=== PATIENT | female | born 1965 | race Caucasian/White ===

== ENCOUNTER 2017-05-03 11:10 | Inpatient (IN) | payer MEDICARE, MEDICAID ==
[~2017-05-03 11:10] MED LIST: CIPR500T4 PO; CLON.1 PO; CLON.5 PO; VENL75XR PO
[2017-05-03 11:24] VITALS: BP 154/84; PULSE 106; RESP 17; O2SAT 97
[2017-05-03 11:28] VITALS: TEMP 98.2
--- NOTE | 2017-05-03 11:31 | PD ---
HPI Chief Complaint: Psychiatric Symptoms Time Seen by Provider: 11:20 Travel History International Travel<30 days: No Contact w/Intl Traveler<30days: No Traveled to known affect area: No History of Present Illness HPI 51-year-old female brought in under Pulido act after being "found walking completely nude along the roadway. Disoriented speaking about God/devil and sodomy." The patient is awake and alert. Patient is having delusional thought process and hallucinations. History of present illness is limited secondary to patient's altered mental status. She does appear under the influence of drugs. She did answer a few questions. She denies illicit drug use, and alcohol use. She denied allergies but according to her medical record she is allergic to Fluorouracil and latex. She says her primary care provider's name is Renetta. She reports history of hypertension and severe depression. PFSH Past Medical History Hx Anticoagulant Therapy: No Asthma: Yes Anxiety: Yes Depression: Yes Cardiovascular Problems: Yes (A-FIB FROM LOW POTASSIUM) Chemotherapy: No Cerebrovascular Accident: Yes ("MICRO STROKES") Diabetes: Yes Diminished Hearing: No Fibromyalgia: Yes Hypertension: Yes Respiratory: Yes (PNA) Migraines: Yes ?: Unknown Past Surgical History Cholecystectomy: Yes (2008) Hysterectomy: Yes Social History Alcohol Use: No Tobacco Use: No Substance Use: No Allergies-Medications (Allergen,Severity, Reaction): Coded Allergies: latex (Unverified Allergy, Severe, 05/03/17) Uncoded Allergies: FIVE-FLUOROURACIL (Allergy, Unknown, 03/30/16) Reported Meds & Prescriptions Reported Meds & Active Scripts Active Cipro (Ciprofloxacin HCl) 500 Mg Tab 500 Mg PO BID 5 Days Effexor-Xr (Venlafaxine HCl) 75 Mg Caper 75 Mg PO BID 30 Days Klonopin (Clonazepam) 0.5 Mg Tab 0.5 Mg PO Q8HR PRN Reported Catapres 0.1 mg (Clonidine HCl) 0.1 Mg Tab 0.1 Tab PO BID Review of Systems ROS Limitations: Clinical Condition, Intoxication, Altered Mental Status, Uncooperative, Psychotic Physical Exam Narrative GENERAL: Well-nourished, well-developed female patient, in no acute distress; appears and acting entered the influence SKIN: Warm and dry. HEAD: Atraumatic. Normocephalic. EYES: Pupils equal and round. ENT: Mucosa pink and moist. NECK: Supple. Trachea midline. CARDIOVASCULAR: Regular rate and rhythm. No murmur appreciated. RESPIRATORY: No accessory muscle use. Clear to auscultation. Breath sounds equal bilaterally. GASTROINTESTINAL: Abdomen soft, non-tender, nondistended. Hepatic and splenic margins not palpable. Bowel sounds are active 4 quadrants. MUSCULOSKELETAL: No obvious deformities. No clubbing. No cyanosis. No edema. BACK: No CVA tenderness. NEUROLOGICAL: Awake and alert. Oriented 3. No obvious cranial nerve deficits. Motor grossly within normal limits. Normal speech. Moves all extremities. 5/5 strength to all extremities. PSYCHIATRIC: Delusional thought processes. Positive hallucinations. Data Data Last Documented VS Vital Signs Date Time Temp Pulse Resp B/P (MAP) Pulse Ox O2 Delivery O2 Flow Rate FiO2 05/03/17 13:21 72 16 165/79 (107) 95 Room Air 05/03/17 11:28 98.2 Orders Orders Complete Blood Count With Diff (05/03/17 11:31) Comprehensive Metabolic Panel (05/03/17 11:31) Urinalysis - C+S If Indicated (05/03/17 11:31) Psych Screen (05/03/17 11:31) Drug Screen, Random Urine (05/03/17 11:31) Alcohol (Ethanol) (05/03/17 11:31) Salicylates (Aspirin) (05/03/17 11:31) Tylenol (Acetaminophen) (05/03/17 11:31) Ct Brain W/O Iv Contrast(Rout) (05/03/17 ) Ziprasidone Inj (Geodon Inj) (05/03/17 12:45) Lorazepam Inj (Ativan Inj) (05/03/17 12:45) Labs Laboratory Tests Test 05/03/17 12:20 05/03/17 12:25 Urine Color LIGHT-YELLOW Urine Turbidity CLEAR Urine pH 6.5 Urine Specific [place] 1.010 Urine Protein NEG mg/dL Urine Glucose (UA) NEG mg/dL Urine Ketones TRACE mg/dL Urine Occult Blood MOD Urine Nitrite NEG Urine Bilirubin NEG Urine Urobilinogen LESS THAN 2.0 MG/DL Urine Leukocyte Esterase NEG Urine RBC 14 /hpf Urine WBC 1 /hpf Urine Squamous Epithelial Cells 1 /hpf Urine Hyaline Casts 4 /lpf Microscopic Urinalysis Comment CULT NOT INDICATED Urine Opiates Screen NEG Urine Barbiturates Screen NEG Urine Amphetamines Screen NEG Urine Benzodiazepines Screen NEG Urine Cocaine Screen NEG Urine Cannabinoids Screen NEG White Blood Count 11.8 TH/MM3 Red Blood Count 4.50 MIL/MM3 Hemoglobin 13.4 GM/DL Hematocrit 40.3 % Mean Corpuscular Volume 89.5 FL Mean Corpuscular Hemoglobin 29.9 PG Mean Corpuscular Hemoglobin Concent 33.3 % Red Cell Distribution Width 12.6 % Platelet Count 290 TH/MM3 Mean Platelet Volume 8.5 FL Neutrophils (%) (Auto) 88.3 % Lymphocytes (%) (Auto) 8.1 % Monocytes (%) (Auto) 3.0 % Eosinophils (%) (Auto) 0.3 % Basophils (%) (Auto) 0.3 % Neutrophils # (Auto) 10.4 TH/MM3 Lymphocytes # (Auto) 1.0 TH/MM3 Monocytes # (Auto) 0.4 TH/MM3 Eosinophils # (Auto) 0.0 TH/MM3 Basophils # (Auto) 0.0 TH/MM3 CBC Comment DIFF FINAL Differential Comment Blood Urea Nitrogen 22 MG/DL Creatinine 0.72 MG/DL Random Glucose 144 MG/DL Total Protein 7.3 GM/DL Albumin 4.0 GM/DL Calcium Level 9.4 MG/DL Alkaline Phosphatase 64 U/L Aspartate Amino Transf (AST/SGOT) 24 U/L Alanine Aminotransferase (ALT/SGPT) 25 U/L Total Bilirubin 0.6 MG/DL Sodium Level 138 MEQ/L Potassium Level 4.3 MEQ/L Chloride Level 105 MEQ/L Carbon Dioxide Level 23.2 MEQ/L Anion Gap 10 MEQ/L Estimat Glomerular Filtration Rate 85 ML/MIN Salicylates Level LESS THAN 1.7 MG/DL Acetaminophen Level LESS THAN 2.0 MCG/ML Ethyl Alcohol Level LESS THAN 3 MG/DL [facility] Medical Decision Making Medical Screen Exam Complete: Yes Emergency Medical Condition: Yes Medical Record Reviewed: Yes Differential Diagnosis Drug intoxication, psychosis, schizophrenia, bipolar disorder Narrative Course Patient presents under a Pulido act. Physical examination and vital signs are essentially unremarkable. Patient has no medical complaints to report. Psych screen has been ordered. If the laboratory results and CT head are unremarkable, the patient will be medically cleared for psychiatric evaluation and disposition. 1242: Patient aggravated and yelling. Geodon and Ativan ordered. 1343: CBC unremarkable. CMP unremarkable. Drug screen negative. EtOH less than 3. Salicylates and acetaminophen unremarkable. Urinalysis without signs of infection. Head CT concludes: Head CT 05/03/17 0000 Signed Impressions: Service Date/Time: Wednesday, May 03, 2017 12:18 - CONCLUSION: Normal examination. Blair Evans MD Patient medically cleared for psychiatric evaluation. Diagnosis Primary Impression: Medical clearance for psychiatric admission Condition: Stable ErikLibby jarrellchrystal Dodson [facility] May 03, 2017 11:31
--- NOTE | 2017-05-03 12:36 | RADRPT ---
EXAM DATE/TIME: 05/03/2017 12:18 [place] COMPARISON: CT BRAIN W/O CONTRAST, February 15, 2016, 20:09. INDICATIONS : Altered mental status. RADIATION DOSE: 33.98 CTDIvol (mGy) MEDICAL HISTORY : Cerebrovascular disease. Cardiovascular disease Hypertension.Diabetes SURGICAL HISTORY : Cholecystectomy. Hysterectomy. ENCOUNTER: Initial ACUITY: 1 day PAIN SCALE: 0/10 LOCATION: cranial TECHNIQUE: Multiple contiguous axial images were obtained of the head. Using automated exposure control and adj ustment of the mA and/or kV according to patient size, radiation dose was kept as low as reasonably a chievable to obtain optimal diagnostic quality images. DICOM format image data is available electro nically for review and comparison. FINDINGS: CEREBRUM: The ventricles are normal for age. No evidence of midline shift, mass lesion, hemorrhage or acute in farction. No extra-axial fluid collections are seen. POSTERIOR FOSSA: The cerebellum and brainstem are intact. The 4th ventricle is midline. The cerebellopontine angle i s unremarkable. EXTRACRANIAL: The visualized portion of the orbits is intact. SKULL: The calvaria is intact. No evidence of skull fracture. CONCLUSION: Normal examination. Blair Evans MD on May 03, 2017 at 12:34 Board Certified Radiologist. This report was verified electronically.
[2017-05-03 12:44] LABS: AUTOMATED NEUTROPHIL # 10.4 TH/MM3 (1.8-7.7); BASOPHIL % 0.3 % (0.0-2.0); EOSINOPHIL % 0.3 % (0.0-4.0); HEMATOCRIT 40.3 % (35.0-46.0); HEMO FLAGS DIFF FINAL; LYMPH % 8.1 % (9.0-44.0); MEAN CELL VOLUME 89.5 FL (80.0-100.0); MEAN CORPUSCULAR HEMOGLOBIN 29.9 PG (27.0-34.0); MEAN CORPUSCULAR HGB CONC 33.3 % (32.0-36.0); NEUT % 88.3 % (16.0-70.0); PLATELET COUNT 290 TH/MM3 (150-450); RED CELL DISTRIBUTION WIDTH 12.6 % (11.6-17.2); WHITE BLOOD COUNT 11.8 TH/MM3 (4.0-11.0)
[2017-05-03] MEDS ORDERED: ZIPRASIDONE MESYLATE 20 MG VIAL IM ONE ×2 (12:45→16:30)
[2017-05-03] MEDS ORDERED: LORazepam 2 MG/ML VIAL IM ONE ×2 (12:45→16:30)
[2017-05-03 12:47] LABS: BLOOD, URINE MOD (NEG); GLUCOSE,URINE NEG (NEG); HYALINE CAST, URINE 4 /lpf (RARE); KETONE, URINE TRACE mg/dL (NEG); NITRITE,URINE NEG (NEG); PH, URINE 6.5 (5.0-8.5); SQUAMOUS EPITHELIAL CELL URINE 1 /hpf (0-5); URINE COLOR LIGHT-YELLOW (YELLW/STRAW)
[2017-05-03 12:48] LABS: COMMENT (UR) CULT NOT INDICATED; CULTURE IF INDICATED CULT NOT INDICATED
[2017-05-03 13:02] LABS: ANION GAP 10 MEQ/L (5-15); AST (GOT) 24 U/L (15-37); BICARBONATE 23.2 MEQ/L (21.0-32.0); BLOOD UREA NITROGEN 22 MG/DL (7-18); CHLORIDE 105 MEQ/L (98-107); GLOMERULAR FILTRATION RATE 85 ML/MIN (>89); POTASSIUM 4.3 MEQ/L (3.5-5.1); SODIUM (NA) 138 MEQ/L (136-145)
[2017-05-03 13:03] LABS: ALCOHOL LESS THAN 3 MG/DL (0-5); ALT (GPT) 25 U/L (10-53)
[2017-05-03 13:06] LABS: ALKALINE PHOSPHATASE 64 U/L (45-117); TOTAL BILIRUBIN ADULT 0.6 MG/DL (0.2-1.0)
[2017-05-03 13:11] LABS: ACETAMINOPHEN LESS THAN 2.0 MCG/ML (10.0-30.0)
[2017-05-03 13:21] VITALS: BP 165/79; PULSE 72; RESP 16; O2SAT 95
[2017-05-03 16:07] VITALS: BP 121/70; PULSE 98; RESP 16; O2SAT 99
[2017-05-03] MEDS ORDERED: OLANZapine IM 10 MG VIAL IM STA (16:42)
[2017-05-03] MEDS ORDERED: OLANZapine IM 10 MG VIAL IM PRN (17:00)
[2017-05-03] MEDS ORDERED: BACL10TA PO (17:05)
[2017-05-03] MEDS ORDERED: [UNRECOGNIZED DRUG - CODE] PO (17:05)
[2017-05-03] MEDS ORDERED: CYCL10TA PO (17:07)
[2017-05-03] MEDS ORDERED: IBUP1TAB7 PO (17:07)
[2017-05-03] MEDS ORDERED: MAGNESIUM HYDROXIDE SUSP 30 ML CUP PO PRN (17:15)
[2017-05-03] MEDS ORDERED: ALUMINUM/MAGNESIUM/SIMETH 30 ML CUP PO PRN (17:15)
[2017-05-03] MEDS ORDERED: LORazepam 2 MG/ML VIAL IM PRN (17:15)
[2017-05-03] MEDS ORDERED: BENZTROPINE MESYLATE 2 MG/2 ML VIAL IM PRN (17:15)
[2017-05-03 17:25] VITALS: BP 116/68; PULSE 96; RESP 18; TEMP 98.5; O2SAT 97
--- NOTE | 2017-05-03 18:03 | MH ---
cc: JUANITASERA DATE OF ADMISSION 05/03/2017 ADMISSION DIAGNOSES 1. Bipolar disorder, presently manic, severe with psychotic features. LEGAL STATUS: The patient is presently not capacitated to consent for admission or for medication/treatment. I have initiated a petition for involuntary psychiatric hospitalization and have requested a healthcare surrogate and guardian advocate. HISTORY OF PRESENT ILLNESS Ms. Mg is a 51-year-old female with a chart history of bipolar illness who presents under a Pulido Act from [place] [employer] alleging that the patient was found walking completely nude along the roadway. She was reported allegedly disoriented and speaking about God and the devil as well as sodomy. Reviewing the electronic medical record, I note that the patient was seen in consultation by Dr. Munguia in February of 2016 with a diagnosis of bipolar disorder. The patient has been agitated in the emergency department and has required Geodon ETO x2. The patient seen and examined with nurse. Chart reviewed. Case discussed with nursing staff. On my examination today, the patient presents as irritable with pressured speech. She is essentially impossible to interrupt and continues to speak regardless of my efforts to question her. She is rambling on mu-ism and linguistic scenes. She tells me "Bryan. D-A-N-I-[id number]-L with three trumpets at the ready. Blow the horn tonight. No one else. Lineal, lineal, lineal phonetically correct spelling. Mongolian word, word, word". She also purports to speak in [place]guillan and Yiddish and purports to demonstrate, although I am not fluent in these languages. She rambles about demons. She is quite disinhibited and sexually preoccupied. She is fairly intrusive and impulsive. She is unable to deny suicidal or homicidal ideation when asked. Psychiatric interview is extremely limited by her decompensated psychiatric state. She does not verbalize any physical complaints. Given the patient's extreme degree of psychotic decompensation in the setting of what I suspect is a bipolar illness, I have obtained collateral from her daughter, Yesy Aponte at [phone]. Ms. Aponte reports that the patient has a history of "sleep disorder" and had previously taken Klonopin for sleep, although she has not taken it for two or three weeks or so. The patient's daughter notes that the patient has not slept for least five days. She notes that the patient has been stressed because of financial issues related to the patient's son. Ms. Aponte notes that the patient has a history of manic decompensations in the setting of sleep disturbance and psychosocial stressors. She reports a poor response in the past to lithium and Seroquel. The patient has also apparently been on antidepressants in the past. She notes that the patient gets her medications filled at the [facility] on [address] as well as the [facility] on [address]. I have asked the nursing staff to obtain an up to date medication list from these pharmacies. PAST PSYCHIATRIC HISTORY The patient is unable to provide. She says "I absolutely pozzzzzzz, laser beaming in my eye". FAMILY HISTORY The patient unable to provide because of psychiatric decompensation. She tells me simply "hold for the lock". CHEMICAL DEPENDENCY HISTORY: The patient tells me "I use the drugs I need and alcohol I like". I reviewed the patient's controlled substances database report the [id number] and this revealed no controlled substances prescribed to the patient in the last three years. SOCIAL HISTORY The patient is unable to provide any meaningful detail because of her degree of psychiatric decompensation. PAST MEDICAL HISTORY See electronic medical record. The patient is unable to provide. REVIEW OF SYSTEMS Severely limited because of the patient's psychiatric condition and psychotic state. Except as noted above in history of present illness, this is negative. PHYSICAL EXAMINATION VITAL SIGNS: Temperature 98.2, pulse 98, respirations 16, blood pressure 121/70, pulse oximetry 99% on room air. A physical examination was completed by the ED provider. On my examination today, the patient appears to be in no acute physical distress. No motor abnormalities noted, although the patient is a little psychomotor agitated. LABORATORY REVIEWED CBC reveals mild leukocytosis with white blood cell count of 11.8. CMP reveals decreased GFR at 85 and hyperglycemia and a non-fasting sample at 144. Urine toxicology negative and alcohol level undetectable. Urinalysis reveals 14 red blood cells, one white blood cell and moderate occult blood. Head CT was read as normal examination. MENTAL STATUS EXAM The patient is in hospital gown. She is fairly disheveled. She is awake and alert and oriented to person at least. I am unable to pursue further mental status testing because of her current psychiatric state. Motor exam as above. Speech is extremely pressured and essentially impossible to interrupt. Language and fund of knowledge seem average. Focus and concentration are quite scattered. Memory is difficult to assess given her psychiatric condition. Mood is irritable and affect is consistent with stated mood. Thought process with loosening of associations. Grandiose and mu-ism delusions are present. The patient appears frankly internally stimulated and seems to be responding to internal stimuli. She is unable to say whether she is experiencing suicidal or homicidal ideation but would be unreliable to contract for safety in her present state at any rate. Insight and judgment are quite poor. ASSESSMENT/PLAN This is a 51-year-old female with psychiatric history as noted above who presents under a Pulido Act. On my examination today, the patient presents in a severely decompensated manic state with psychotic features. She doubtless requires psychiatric admission for safety, observation and stabilization. Admit inpatient. Involuntary status. I have completed first opinion. Consult for second opinion. Request health care surrogate and guardian advocate. For mood stabilization, I will initiate Depakote ER 1.5 grams daily with plans to check a Depakote and ammonia level the middle of next week. LFTs and platelets okay. For psychosis and mood stabilization as well as to assist with sleep, I will start the patient on Zyprexa 10 mg at bedtime p.o. or IM if needed. I will provide the patient with Ativan as needed for anxiety, Cogentin as needed for EPS, Ambien as needed for sleep. I will check an extended urine tox screen and beta hCG. I will check an updated CBC, BMP as well as a hemoglobin A1c and lipid panel in the morning. Once the nursing staff has obtained and up-to-date medication list, this will be reconciled to place the patient back on her appropriate general medical medications. I have instituted sexual precautions given her sexual preoccupation. Vitals every shift. Counselor to see. Disposition planning. Estimated length of stay: 7-9 days. Sera Paris DC/ /5:13 PM /5:48 PM LASHAY
[2017-05-03] MEDS: LORazepam 1 MG TAB PO PRN (20:22)
[2017-05-03] MEDS ORDERED: OLANZapine ODT 10 MG TAB PO SCH (21:00)
[2017-05-03 21:10] VITALS: BP 143/83; PULSE 94; RESP 20; TEMP 97.8; O2SAT 100
[2017-05-04] MEDS: LORazepam 1 MG TAB PO PRN (05:48)
[2017-05-04] MEDS ORDERED: HALOPERIDOL LACTATE 5 MG/ML AMP IM STA (07:51)
[2017-05-04] MEDS ORDERED: diphenhydrAMINE HCL 50 MG/ML VIAL IM ONE (08:00)
[2017-05-04] MEDS ORDERED: LORazepam 2 MG/ML VIAL IM ONE (08:00)
[2017-05-04] MEDS: DIVALPROEX SODIUM E.R. 500 MG TAB PO SCH (08:01)
[2017-05-04] MEDS: NICOTINE 21 MG/24 HR PATCH T-DERMAL SCH (08:07)
[2017-05-04 08:49] LABS: AUTOMATED NEUTROPHIL # 4.5 TH/MM3 (1.8-7.7); BASOPHIL # 0.1 TH/MM3 (0-0.2); BASOPHIL % 0.7 % (0.0-2.0); EOSINOPHIL # 0.3 TH/MM3 (0-0.4); EOSINOPHIL % 2.8 % (0.0-4.0); HEMATOCRIT 41.2 % (35.0-46.0); HEMO FLAGS DIFF FINAL; LYMPH % 42.5 % (9.0-44.0); LYMPHOCYTE # 4.3 TH/MM3 (1.0-4.8); MEAN CELL VOLUME 89.8 FL (80.0-100.0); MEAN CORPUSCULAR HGB CONC 33.4 % (32.0-36.0); PLATELET COUNT 317 TH/MM3 (150-450); RED BLOOD COUNT 4.59 MIL/MM3 (4.00-5.30); RED CELL DISTRIBUTION WIDTH 12.6 % (11.6-17.2); WHITE BLOOD COUNT 10.2 TH/MM3 (4.0-11.0)
[2017-05-04 08:51] LABS: ANION GAP 9 MEQ/L (5-15); BICARBONATE 24.9 MEQ/L (21.0-32.0); BLOOD UREA NITROGEN 15 MG/DL (7-18); CHLORIDE 103 MEQ/L (98-107); GLOMERULAR FILTRATION RATE 91 ML/MIN (>89); LDL CHOLESTEROL 94 MG/DL (0-99); POTASSIUM 3.3 MEQ/L (3.5-5.1); SODIUM (NA) 137 MEQ/L (136-145)
[2017-05-04 12:09] LABS: HEMOGLOBIN A1a 0.9 %; HEMOGLOBIN A1b 1.7 %; HEMOGLOBIN Ao 85.5 %; HEMOGLOBIN P3 3.6 %
--- NOTE | 2017-05-04 13:42 | HHI.PYPN ---
Subjective Remarks Is a request for second opinion. Her admission note was reviewed and I agree with the contents. Patient remains acutely manic throughout the day. She required an ETO of Thorazine. She was observed in the hallway. Agitated, yelling, accusatory, pressured speech, irritable, flight of ideas. Insight is quite poor. She is compliant with her medications and tolerating them well Mental Status Examination Appearance: Disheveled Consciousness: Highly Distractible Orientation: Person, Place, Date/Time Speech: Pressured, Rapid Language: Adequate Fund of Knowledge: Adequate Attention and Concentration: Easily Distracted Memory: Unremarkable (not formally tested) Mood: Oppositional, Irritable, Manic Affect: Irritable, Labile, Anxious Thought Process & Associations: Other (flight of ideas) Thought Content: Bizarre thinking, Racing thoughts Hallucination Type: None Delusion Type: None Suicidal Ideation: No Suicidal Plan: No Suicidal Intention: No Homicidal Ideation: No Homicidal Plan: No Homicidal Intention: No Insight: Poor Judgment: Poor Results Labs Test 05/04/17 07:41 White Blood Count 10.2 TH/MM3 Red Blood Count 4.59 MIL/MM3 Hemoglobin 13.7 GM/DL Hematocrit 41.2 % Mean Corpuscular Volume 89.8 FL Mean Corpuscular Hemoglobin 30.0 PG Mean Corpuscular Hemoglobin Concent 33.4 % Red Cell Distribution Width 12.6 % Platelet Count 317 TH/MM3 Mean Platelet Volume 8.3 FL Neutrophils (%) (Auto) 44.0 % Lymphocytes (%) (Auto) 42.5 % Monocytes (%) (Auto) 10.0 % Eosinophils (%) (Auto) 2.8 % Basophils (%) (Auto) 0.7 % Neutrophils # (Auto) 4.5 TH/MM3 Lymphocytes # (Auto) 4.3 TH/MM3 Monocytes # (Auto) 1.0 TH/MM3 Eosinophils # (Auto) 0.3 TH/MM3 Basophils # (Auto) 0.1 TH/MM3 CBC Comment DIFF FINAL Differential Comment Blood Urea Nitrogen 15 MG/DL Creatinine 0.68 MG/DL Random Glucose 115 MG/DL Calcium Level 9.4 MG/DL Sodium Level 137 MEQ/L Potassium Level 3.3 MEQ/L Chloride Level 103 MEQ/L Carbon Dioxide Level 24.9 MEQ/L Anion Gap 9 MEQ/L Estimat Glomerular Filtration Rate 91 ML/MIN Hemoglobin A1c 5.6 % Triglycerides Level 160 MG/DL Cholesterol Level 182 MG/DL LDL Cholesterol 94 MG/DL HDL Cholesterol 56.0 MG/DL Cholesterol/HDL Ratio 3.25 RATIO Vitals/IOs Vital Signs Date Time Temp Pulse Resp B/P (MAP) Pulse Ox O2 Delivery O2 Flow Rate FiO2 05/03/17 21:10 97.8 94 20 143/83 (103) 100 05/03/17 17:25 Room Air Assessment & Plan Problem List: (1) Bipolar disorder, current episode manic severe with psychotic features ICD Codes: F31.2 - Bipolar disorder, current episode manic severe with psychotic features Assessment & Plan I agree with the first opinion to continue petition. Criteria include acute merry. Today potassium was low and we will give her 20 mEq and repeat and repeat a level this afternoon. We'll also increase Zyprexa to 20 mg Justification for Cont. Inpt. Patient will decompensate in a less restrictive setting Evan Frausto DO May 04, 2017 13:42
[2017-05-04] MEDS ORDERED: POTASSIUM CHLORIDE 20 MEQ CONTROLLED RELEASE TAB PO ONE (14:00)
--- NOTE | 2017-05-04 14:49 | EKG ---
Date Performed: 05/03/2017 Time Performed: 21:46:22 PTAGE: 51 years EKG: Sinus rhythm NORMAL ECG PREVIOUS TRACING : 02/08/2016 03.43 Compared to prior tracing no significant change DOCTOR: Oren Torre Interpretating Date/Time 05/04/2017 14:48:22
[2017-05-04] MEDS ORDERED: POTASSIUM CHLORIDE 10 MEQ CONTROLLED RELEASE TAB PO ONE (15:00)
--- NOTE | 2017-05-04 15:10 | PD.CONS ---
HPI Service [facility] Hospitalists Consult Requested By Primary Care Physician Unknown Diagnoses: History of Present Illness 51-year-old white female admitted after being placed under Pulido act for walking nude in public. Per psychiatry she apparently is undergoing a manic episode. Hospitalist was consulted apparently for lice. Patient has undergone substantial psychotropic medication treatment including Geodon, Haldol, Ativan, Benadryl, Thorazine, depakote, and zyprexa - all to help stabilize her mood. Upon entering the patient's room, she is pleasant but becomes very talkative and is almost unable to answer any and all questions since she is exclusively only processing her own words. Review of Systems Unable to obtain due to pt's tangential speech Past Family Social History Allergies: Coded Allergies: latex (Unverified Allergy, Severe, 05/03/17) Uncoded Allergies: FIVE-FLUOROURACIL (Allergy, Unknown, 03/30/16) Past Medical History A. 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 Has a few bruises on her distal extremities. No lice noted EYES: No scleral icterus. No injection or drainage. ENT: No nasal bleeding or discharge. Mucous membranes pink and moist. CARDIOVASCULAR: Regular rate and rhythm. no murmurs RESPIRATORY: No accessory muscle use. Clear to auscultation. Breath sounds equal bilaterally. GASTROINTESTINAL: Abdomen soft, non-tender, nondistended. Extremities: No clubbing, cyanosis, or edema. No obvious deformities. MUSCULOSKELETAL: Extremities without clubbing, cyanosis, or edema. No obvious deformities. grossly intact ROM with 5/5 strength in upper extremities, demonstrates only 3 out of 5 lower ext strength BL as the patient states she is holding back due to back pain, has adequate muscle bulk and tone in all 4 extremities NEUROLOGICAL: Awake and alert. No obvious cranial nerve deficits. No facial droop nor slurred speech noted. PSYCHIATRIC: Insight is poor, pressured speech Laboratory Laboratory Tests Test 05/04/17 07:41 White Blood Count 10.2 Red Blood Count 4.59 Hemoglobin 13.7 Hematocrit 41.2 Mean Corpuscular Volume 89.8 Mean Corpuscular Hemoglobin 30.0 Mean Corpuscular Hemoglobin Concent 33.4 Red Cell Distribution Width 12.6 Platelet Count 317 Mean Platelet Volume 8.3 Neutrophils (%) (Auto) 44.0 Lymphocytes (%) (Auto) 42.5 Monocytes (%) (Auto) 10.0 Eosinophils (%) (Auto) 2.8 Basophils (%) (Auto) 0.7 Neutrophils # (Auto) 4.5 Lymphocytes # (Auto) 4.3 Monocytes # (Auto) 1.0 Eosinophils # (Auto) 0.3 Basophils # (Auto) 0.1 CBC Comment DIFF FINAL Differential Comment Blood Urea Nitrogen 15 Creatinine 0.68 Random Glucose 115 Calcium Level 9.4 Sodium Level 137 Potassium Level 3.3 Chloride Level 103 Carbon Dioxide Level 24.9 Anion Gap 9 Estimat Glomerular Filtration Rate 91 Hemoglobin A1c 5.6 Triglycerides Level 160 Cholesterol Level 182 LDL Cholesterol 94 HDL Cholesterol 56.0 Cholesterol/HDL Ratio 3.25 Result Diagram: 05/04/17 0741 05/04/17 0741 Imaging Last Impressions Head CT 05/03/17 0000 Signed Impressions: Service Date/Time: Wednesday, May 03, 2017 12:18 - CONCLUSION: Normal examination. Blair Evans MD Assessment and Plan Assessment and Plan Lice - No lice noted on exam by me nor nursing. Hypokalemia - checking magnesium level, anticipate improvement, this is likely a lab variation but will follow-up with repeat potassium level, already orally replaced Back pain - appears chronic per medical records, UC per nursing that was completed on 05/03 is negative. Ana - being managed by psychiatry History of A. fib - charted history of A. fib at least, my independent review of the current EKG shows sinus rhythm, no further workup at this time. Clinically rate is normal at this time. Repeat K level appears wnl. would recommend repeating in a 3-4 days. No lice noted at this time. Pt otherwise appears medically stable. Will sign off, contact hospitalist if needed. Willie Robertson MD May 04, 2017 15:10
[2017-05-04 18:36] VITALS: BP 111/56; PULSE 92; RESP 17; TEMP 98.1; O2SAT 96
[2017-05-04] MEDS: OLANZapine ODT 10 MG TAB PO SCH (21:11)
[2017-05-04] MEDS: ACETAMINOPHEN 325 MG TAB PO PRN (21:13)
[2017-05-04] MEDS: diphenhydrAMINE HCL 50 MG CAP PO PRN (22:40)
[2017-05-04] MEDS: ZOLPIDEM TARTRATE 5 MG TAB PO PRN (22:40)
--- NOTE | 2017-05-04 23:33 | EKG ---
Date Performed: 05/04/2017 Time Performed: 16:07:41 PTAGE: 51 years EKG: Sinus rhythm ABNORMAL ECG PREVIOUS TRACING : 05/03/2017 21.46 Compared to prior tracing no significant change DOCTOR: Oren Torre Interpretating Date/Time 05/04/2017 23:32:11
[2017-05-05] MEDS: LORazepam 1 MG TAB PO PRN ×2 (02:24→21:16)
[2017-05-05] MEDS: cloNIDine HCL 0.1 MG TAB PO PRN (02:25)
[2017-05-05] MEDS ORDERED: LEXA10TA PO (03:26)
[2017-05-05 05:48] VITALS: BP 182/77; PULSE 111; RESP 20; TEMP 98.5; O2SAT 97
[2017-05-05] MEDS: DIVALPROEX SODIUM E.R. 500 MG TAB PO SCH (08:18)
[2017-05-05] MEDS: ACETAMINOPHEN 325 MG TAB PO PRN ×2 (08:18→13:41)
[2017-05-05] MEDS: NICOTINE 21 MG/24 HR PATCH T-DERMAL SCH (08:19)
[2017-05-05] MEDS: REMOVE OLD PATCH T-DERMAL SCH (09:00)
--- NOTE | 2017-05-05 14:28 | HHI.PYPN ---
Subjective Remarks Patient was seen and case discussed with nursing. Patient remains acutely manic. Shuffling down the hernandez earlier in this morning had an episode of yelling and screaming that was alleviated with Ativan. Insight remains poor. Remains argumentative. Tolerating her medications well. Zyprexa was increased yesterday Mental Status Examination Appearance: Disheveled Consciousness: Highly Distractible Orientation: Person, Place, Date/Time Speech: Pressured, Rapid Language: Adequate Fund of Knowledge: Adequate Attention and Concentration: Easily Distracted Memory: Unremarkable (not formally tested) Mood: Oppositional, Irritable, Manic Affect: Irritable, Labile, Anxious Thought Process & Associations: Other (flight of ideas) Thought Content: Bizarre thinking, Racing thoughts Hallucination Type: None Delusion Type: None Suicidal Ideation: No Suicidal Plan: No Suicidal Intention: No Homicidal Ideation: No Homicidal Plan: No Homicidal Intention: No Insight: Poor Judgment: Poor Results Labs Test 05/04/17 18:40 Potassium Level 3.9 MEQ/L Vitals/IOs Vital Signs Date Time Temp Pulse Resp B/P (MAP) Pulse Ox O2 Delivery O2 Flow Rate FiO2 05/05/17 05:48 98.5 111 20 182/77 (112) 97 05/03/17 17:25 Room Air Assessment & Plan Problem List: (1) Bipolar disorder, current episode manic severe with psychotic features ICD Codes: F31.2 - Bipolar disorder, current episode manic severe with psychotic features Assessment & Plan Continue current treatment plan Justification for Cont. Inpt. Patient would decompensate in a less restrictive setting Evan Frausto DO May 05, 2017 14:28
[2017-05-05] MEDS: OLANZapine ODT 10 MG TAB PO SCH (21:16)
[2017-05-05] MEDS: BENZTROPINE MESYLATE 1 MG TAB PO PRN (22:12)
[2017-05-05] MEDS: ZOLPIDEM TARTRATE 5 MG TAB PO PRN (22:12)
[2017-05-06 05:52] VITALS: BP 122/75; PULSE 78; RESP 17; TEMP 97.5; O2SAT 98
[2017-05-06] MEDS: DIVALPROEX SODIUM E.R. 500 MG TAB PO SCH (08:19)
[2017-05-06] MEDS: NICOTINE 21 MG/24 HR PATCH T-DERMAL SCH (08:21)
[2017-05-06] MEDS: REMOVE OLD PATCH T-DERMAL SCH (08:21)
--- NOTE | 2017-05-06 09:58 | HHI.PYPN ---
Subjective Chief Complaint: merry with psychotic features Remarks Patient seen and examined with nurse. Chart reviewed. Case discussed with nursing staff who reports patient was screaming and yelling on the unit yesterday. She required extensive ETOs over the weekend but none overnight last night. On my exam, patient's voice is hoarse from screaming. She is irritable but describes mood as "pretty good, considering." She is faultfinding and belittling staff. She is somewhat fidgety. Speech is considerably less pressured than on my initial visit with the patient, and her thoughts are a little more linear. She does continue to exhibit some bizarre ideation at times with synagogue overtones. She tells me, "I'm in the middle of passing over." Denies SI/HI/AVH. Denies side effects from medications. No physical complaints. Insight into mental illness is poor. She insists that she has unipolar depression with "manias" when she cannot sleep and refuses to consider possibility of the bipolar diagnosis. Review of Systems ROS Limitations: Poor Historian Except as stated in HPI: all other systems reviewed are Neg Mental Status Examination Appearance: Disheveled Consciousness: Alert, Highly Distractible Orientation: Person, Place, Date/Time Motor Activity: Other (no hand tremor, no cogwheeling, no dystonias, no dyskinesias. She is somewhat fidgety.) Speech: Other (considerably less pressured today) Language: Adequate Fund of Knowledge: Adequate Attention and Concentration: Easily Distracted Memory: Unremarkable (not formally tested) Mood: Oppositional, Irritable, Manic Affect: Irritable Thought Process & Associations: Other (flight of ideas, somewhat less today) Thought Content: Bizarre thinking Hallucination Type: None Delusion Type: None Suicidal Ideation: No Suicidal Plan: No Suicidal Intention: No Homicidal Ideation: No Homicidal Plan: No Homicidal Intention: No Insight: Poor Judgment: Poor Results Labs Labs reviewed. No new labs. ETox pending. Most recent EKG sinus rhythm with QTcH not prolonged. Vitals/IOs Vital Signs Date Time Temp Pulse Resp B/P (MAP) Pulse Ox O2 Delivery O2 Flow Rate FiO2 05/06/17 05:52 97.5 78 17 122/75 (91) 98 05/03/17 17:25 Room Air Assessment & Plan Problem List: (1) Bipolar disorder, current episode manic severe with psychotic features ICD Codes: F31.2 - Bipolar disorder, current episode manic severe with psychotic features Assessment & Plan Add midday dose of Zyprexa for additional mood stabilization: Zyprexa 5mg qNoon and continue 20mg qHS. Continue Depakote as ordered with plans to check a level middle of the week and adjust dose based on level. Hospitalist input noted and appreciated. I will check a potassium level when I checked the Depakote level as recommended by the hospitalist. Continue to monitor on high acuity unit. Continue other meds and care as ordered. Justification for Cont. Inpt. Resolving impairments in reality construction. Impairment in self-care. Med changes. High risk for decompensation in less restrictive environment. Discharge Planning Pending psychiatric stabilization. I anticipate patient will require an additional 5-7 inpatient days for adequate stabilization for safety discharge. Request HC Surrog/Guard Advoc?: Yes Linwood Paris MD May 06, 2017 09:58
[2017-05-06] MEDS: OLANZapine ODT 5 MG TAB PO SCH (11:15)
[2017-05-06] MEDS ORDERED: MENTHOL LOZENGE BUCCAL PRN (12:00)
[2017-05-06 18:20] VITALS: BP_SYST 127; BP_SYST 144; BP_DIAS 58; BP_DIAS 76; PULSE 117; PULSE 72; RESP 16; RESP 17; TEMP 98; TEMP 98.8; O2SAT 98
[2017-05-06] MEDS: OLANZapine ODT 10 MG TAB PO SCH (20:19)
[2017-05-06] MEDS: ZOLPIDEM TARTRATE 5 MG TAB PO PRN (21:34)
[2017-05-07 05:33] VITALS: BP 117/85; PULSE 80; RESP 16; TEMP 97.3; O2SAT 96
[2017-05-07] MEDS: DIVALPROEX SODIUM E.R. 500 MG TAB PO SCH (08:50)
[2017-05-07] MEDS: LORazepam 1 MG TAB PO PRN ×2 (08:50→17:25)
[2017-05-07] MEDS: NICOTINE 21 MG/24 HR PATCH T-DERMAL SCH (08:51)
[2017-05-07] MEDS: REMOVE OLD PATCH T-DERMAL SCH (08:51)
--- NOTE | 2017-05-07 10:38 | HHI.PYPN ---
Subjective Chief Complaint: merry with psychotic features Remarks Patient seen and examined with nurse. Chart reviewed. Case discussed in treatment team. On my examination today, patient is considerably calmer and more coherent, at least initially. She describes her mood as "pretty good" and says that she is sleeping better. Affect does remain labile, though, and following our interview I note the patient wandering around the unit weeping without identifiable cause. During the interview, patient reported feeling subjectively less anxious. She denies SI/HI/AVH. She denies side effects from medications and feels like current regimen is helping. No new physical complaints. I did place a call to patient's daughter to get her impressions of patient's progress on the unit. I left a generic voicemail requesting a call back. Review of Systems ROS Limitations: Poor Historian Except as stated in HPI: all other systems reviewed are Neg Mental Status Examination Appearance: Disheveled (remains a little disheveled) Consciousness: Alert Orientation: Person, Place, Date/Time Motor Activity: Other (no motor abnormalities noted) Speech: Unremarkable Language: Adequate Fund of Knowledge: Adequate Attention and Concentration: Easily Distracted (lessening. More focused today. ) Memory: Unremarkable (not formally tested) Mood: Other (calmer) Affect: Labile Thought Process & Associations: Other (considerably more linear and goal- directed today) Thought Content: Appropriate Hallucination Type: None Delusion Type: None Suicidal Ideation: No Suicidal Plan: No Suicidal Intention: No Homicidal Ideation: No Homicidal Plan: No Homicidal Intention: No Insight: Poor Judgment: Poor Results Labs Labs reviewed. No new labs. Extended urine toxicology screen pending. Vitals/IOs Vital Signs Date Time Temp Pulse Resp B/P (MAP) Pulse Ox O2 Delivery O2 Flow Rate FiO2 05/07/17 05:33 97.3 80 16 117/85 (96) 96 05/03/17 17:25 Room Air Intake and Output 05/07/17 05/07/17 05/08/17 08:00 16:00 00:00 Intake Total 240 ml Balance 240 ml Assessment & Plan Problem List: (1) Bipolar disorder, current episode manic severe with psychotic features ICD Codes: F31.2 - Bipolar disorder, current episode manic severe with psychotic features Assessment & Plan Patient is improving with respect to her merry. Continue Depakote and Zyprexa as ordered. Depakote and ammonia level ordered for tomorrow morning. We may consider adjusting the dose of Depakote based on the level. Continue to monitor on the inpatient unit. Continue other medications and care as ordered. Justification for Cont. Inpt. Risk for decompensation in less restrictive environment. Discharge Planning Pending stabilization. Hopeful for discharge by the end of the week. Request HC Surrog/Guard Advoc?: Yes Linwood Paris MD May 07, 2017 10:38
--- NOTE | 2017-05-07 11:13 | PD.TTN ---
Patient Problems 1. Discharge planning 2. Medication compliance 3. Knowledge deficit 4. Lack of coping skills Progress Toward Goals Provider Present: Dr. Rosalind Paris Provider Input: Pt currently meets criteria to remain on the unit and remains manic. Medication regiment has been adjusted including titration of Zyprexa and Depakote. Nurse(s) Present: Jeannette Alberts, RN Nurse(s) Input: Pt has been disruptive on the unit including screaming and has been having behavioral issues. Pt appears manic and intrusive with poor boundaries at this time. Psychiatric Counselors Present: ROSEMARY Raya Psych Therapist Input: Pt appears somewhat manic, hyperverbal, disorganized, discharge focused and oriented. Pt feels that she is ready to go home and is quite tearful that she cannot leave at this time. She struggles to remain on topic and requires redirection back to discussion. She presents with limited insight into condition and need for care. Pt has been medication compliant. Group Spec/RT/OT/ABRAHAM Present: Jorge Cuevas OT Group Spec/RT/OT/ABRAHAM Input: Pt has attended one group during her admission and is a fairly new admission. Discharge Plan SMA Pt will return to her home and will be linked with necessary outpatient psychiatric follow up appointment. Documentation Scribe: ROSEMARY Raya Jonathan LMHC May 07, 2017 11:13
[2017-05-07] MEDS: OLANZapine ODT 5 MG TAB PO SCH (11:49)
[2017-05-07] MEDS ORDERED: OLANZapine ODT 5 MG TAB PO ONE (13:45)
[2017-05-07] MEDS: BENZTROPINE MESYLATE 1 MG TAB PO PRN (14:42)
[2017-05-07 18:04] VITALS: BP 126/68; PULSE 92; RESP 18; TEMP 98.7; O2SAT 95
[2017-05-07] MEDS: OLANZapine ODT 10 MG TAB PO SCH (20:21)
[2017-05-07] MEDS: diphenhydrAMINE HCL 50 MG CAP PO PRN (20:21)
[2017-05-07] MEDS: ACETAMINOPHEN 325 MG TAB PO PRN (20:46)
[2017-05-07] MEDS: ZOLPIDEM TARTRATE 5 MG TAB PO PRN (21:00)
[2017-05-08 05:43] VITALS: BP 144/70; PULSE 79; RESP 18; TEMP 97.5; O2SAT 98
[2017-05-08] MEDS: DIVALPROEX SODIUM E.R. 500 MG TAB PO SCH (07:58)
[2017-05-08] MEDS: REMOVE OLD PATCH T-DERMAL SCH (07:58)
[2017-05-08] MEDS: NICOTINE 21 MG/24 HR PATCH T-DERMAL SCH (07:58)
--- NOTE | 2017-05-08 09:59 | HHI.PYPN ---
Subjective Chief Complaint: merry with psychotic features Remarks Patient seen and examined with nurse. Chart reviewed. Case discussed with nursing staff who notes that the patient continues to verbalize bizarre ideation at times. On my exam, patient is fairly appropriate and calm. 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 She says that she "definitely feel[s] better today" with the benefit of medications. She denies any SI/HI/AVH. Denies side effects from medications. No symptoms of Depakote toxicity or hyperammonemic encephalopathy. If anything, patient seems clearer on exam today with respect to thought process. No physical complaints. I try to provide psychoeducation regarding BPAD, which I suspect is the relevant diagnosis, but the patient continues to insist that she has unipolar depression with "manias" when her sleep is disturbed. I think this may largely be a semantic issue, though, as the patient does feel current psychotropics are helping and seems agreeable to remaining on them. Review of Systems ROS Limitations: Poor Historian Except as stated in HPI: all other systems reviewed are Neg Mental Status Examination Appearance: Other (Fairly well groomed) Consciousness: Alert Orientation: x4 (no evidence of delirium) Motor Activity: Normal gait, Other (no motor abnormalities noted) Speech: Unremarkable Language: Adequate Fund of Knowledge: Adequate Attention and Concentration: Easily Distracted (once again more focused today) Memory: Unremarkable Mood: Other (calmer) Affect: Blunt Thought Process & Associations: Other (fairly linear) Thought Content: Appropriate Hallucination Type: None Delusion Type: None Suicidal Ideation: No Suicidal Plan: No Suicidal Intention: No Homicidal Ideation: No Homicidal Plan: No Homicidal Intention: No Insight: Poor Judgment: Poor Results Labs Item Value Date Time Valproic Acid (Depakene) Level 129 MCG/ML *H 05/08/17 09 Ammonia 75 MCMOL/L H 05/08/17 09 Potassium Level 3.4 MEQ/L L 05/08/17 09 Labs reviewed. K once again somewhat low; I will replete. Depakote level 129; in the absence of symptoms or signs of Depakote toxicity this is likely acceptable for acute stabilization of patient's merry, but since she is improving I will drop Depakote dose somewhat to a dose more appropriate for long -term use. Ammonia is elevated without evidence of hyperammonemic encephalopathy. I will start Carnitor and plan to recheck an ammonia level later in the week. Vitals/IOs Vital Signs Date Time Temp Pulse Resp B/P (MAP) Pulse Ox O2 Delivery O2 Flow Rate FiO2 05/08/17 05:43 97.5 79 18 144/70 (94) 98 Assessment & Plan Problem List: (1) Bipolar disorder, current episode manic severe with psychotic features ICD Codes: F31.2 - Bipolar disorder, current episode manic severe with psychotic features Assessment & Plan Taper Depakote to 1250mg/day. Add Carnitor. Check VPA/ammonia level Saturday morning. Continue Zyprexa 10/20mg; could consider consolidating this all to HS. Continue to monitor on the inpatient unit. Continue other medications and care as ordered. Justification for Cont. Inpt. No changes. Risk for decompensation in less restrictive environment Discharge Planning Pending outcome of [address] tomorrow. If retained, I would anticipate d/c beginning of next week. Request HC Surrog/Guard Advoc?: Yes Linwood Paris MD May 08, 2017 09:59
[2017-05-08 10:16] LABS: POTASSIUM 3.4 MEQ/L (3.5-5.1)
[2017-05-08] MEDS ORDERED: POTASSIUM CHLORIDE 10 MEQ CONTROLLED RELEASE TAB PO ONE (11:45)
[2017-05-08] MEDS: OLANZapine ODT 5 MG TAB PO SCH (12:23)
[2017-05-08] MEDS: levOCARNitine 10% ORAL SOLN 118 ML BTL PO SCH ×2 (13:00→16:06)
[2017-05-08] MEDS: cloNIDine HCL 0.1 MG TAB PO PRN (15:33)
[2017-05-08] MEDS: LORazepam 1 MG TAB PO PRN ×2 (16:06→20:13)
[2017-05-08 17:00] VITALS: BP 155/96; PULSE 96; RESP 18; TEMP 98.6; O2SAT 98
[2017-05-08] MEDS: OLANZapine ODT 10 MG TAB PO SCH (20:13)
[2017-05-08] MEDS: ZOLPIDEM TARTRATE 5 MG TAB PO PRN (20:13)
[2017-05-08] MEDS: diphenhydrAMINE HCL 50 MG CAP PO PRN (20:13)
[2017-05-08] MEDS: ACETAMINOPHEN 325 MG TAB PO PRN (20:14)
[2017-05-09] MEDS: ACETAMINOPHEN 325 MG TAB PO PRN (02:38)
[2017-05-09] MEDS: LORazepam 1 MG TAB PO PRN (02:38)
[2017-05-09 05:40] VITALS: BP 122/73; PULSE 85; RESP 18; TEMP 98; O2SAT 97
[2017-05-09] MEDS: NICOTINE 21 MG/24 HR PATCH T-DERMAL SCH (08:51)
[2017-05-09] MEDS: levOCARNitine 10% ORAL SOLN 118 ML BTL PO SCH ×2 (08:51→12:25)
[2017-05-09] MEDS: REMOVE OLD PATCH T-DERMAL SCH (08:51)
[2017-05-09] MEDS ORDERED: DIVALPROEX SODIUM E.R. 250 MG TAB PO SCH (09:00)
[2017-05-09 10:52] LABS: BATH SALTS (MDPV) UR NEG (NEG); ECSTASY (MDMA) UR NEG (NEG); HEROIN (6-ACETYLMORPHINE) UR NEG (NEG); K2 SPICE UR NEG (NEG); OBGABAPENTIN UR NEG (NEG); OBHYDROMORPHONE U NEG (NEG); OBMETHADONE UR NEG (NEG); PHENCYCLIDINE URINE NEG (NEG)
[2017-05-09] MEDS ORDERED: DIVA250ER PO (12:16)
[2017-05-09] MEDS ORDERED: OLANZ10 PO (12:16)
[2017-05-09] MEDS ORDERED: OLANZ5 PO (12:16)
[2017-05-09] MEDS ORDERED: LEVO10%S PO (12:16)
--- NOTE | 2017-05-09 12:17 | HHI.DS ---
Psychiatry Discharge Summary Inpatient Psychiatric care?: Yes Advance Directive: No Reason Not Provided: Due to Patient Condition Mental Health AdvanceDirective: No Health Care Proxy: No Admission Admission Date May 03, 2017 at 17:05 Admission Diagnosis: (1) Bipolar disorder, current episode manic severe with psychotic features ICD Code: F31.2 - Bipolar disorder, current episode manic severe with psychotic features Brief History Ms. Mg is a 51-year-old female with a chart history of bipolar illness who presents under a [place] from [employer] alleging that the patient was found walking completely nude along the roadway. She was reported allegedly disoriented and speaking about God and the devil as well as sodomy. Reviewing the electronic medical record, I note that the patient was seen in consultation by Dr. Munguia in February of 2016 with a diagnosis of bipolar disorder. The patient has been agitated in the emergency department and has required Geodon ETO x2. The patient seen and examined with nurse. Chart reviewed. Case discussed with nursing staff. On my examination today, the patient presents as irritable with pressured speech. She is essentially impossible to interrupt and continues to speak regardless of my efforts to question her. She is rambling on yarsani and linguistic scenes. She tells me "Bryan. D-A-N-I-[id number]-L with three trumpets at the ready. Blow the horn tonight. No one else. Lineal, lineal, lineal phonetically correct spelling. Serbian word, word, word". She also purports to speak in Zimbabwean and Yiddish and purports to demonstrate, although I am not fluent in these languages. She rambles about demons. She is quite disinhibited and sexually preoccupied. She is fairly intrusive and impulsive. She is unable to deny suicidal or homicidal ideation when asked. Psychiatric interview is extremely limited by her decompensated psychiatric state. She does not verbalize any physical complaints. Tobacco Use In Past 30 Days: Refused To Answer Alcohol Use: Never Hospital Course Patient was admitted to a locked, inpatient psychiatric unit. A general medical consultation was obtained. Appropriate precautions were in place throughout patient's hospital stay. Patient was seen and examined on the unit by psychiatry and also visited by counselor. Psychotropic medications were adjusted. Patient tolerated medications well without side effects. Patient had improvement in presenting psychiatric symptomatology. There was no evidence of any suicidality or homicidality on the inpatient unit. Patient's case was presented to the [place] [address] court today, and the optical brightener maker helper has ordered her discharge today. The patient is not willing to remain in the hospital voluntarily. She remains somewhat symptomatic with respect to her merry, and it is my judgement that the patient would benefit from additional inpatient stabilization. I will therefore discharge the patient AGAINST MEDICAL ADVICE. Psychiatric follow-up as arranged by counselor. Patient is also to follow-up with primary care. Patient to return to psychiatric emergency room for any concerning psychiatric symptoms. Results Blood Pressure 122 / 73 Vital Signs Date Time Temp Pulse Resp B/P (MAP) Pulse Ox O2 Delivery O2 Flow Rate FiO2 05/09/17 05:40 98.0 85 18 122/73 (89) 97 Laboratory Tests Test 05/08/17 09:42 Potassium Level 3.4 MEQ/L (3.5-5.1) Ammonia 75 MCMOL/L (11-32) Valproic Acid (Depakene) Level 129 MCG/ML (50-100) Laboratory Results Test 05/04/17 07:41 05/08/17 09:42 Cholesterol Level 182 MG/DL (120-200) HDL Cholesterol 56.0 MG/DL (40.0-60.0) Hemoglobin A1c 5.6 % (4.3-6.0) LDL Cholesterol 94 MG/DL (0-99) Triglycerides Level 160 MG/DL (42-150) Valproic Acid (Depakene) Level 129 MCG/ML (50-100) Summary of Procedures None done Imaging Last Impressions Head CT 05/03/17 0000 Signed Impressions: Service Date/Time: Wednesday, May 03, 2017 12:18 - CONCLUSION: Normal examination. Blair Evans MD Pending results at discharge: Yes (Potassium level.) Medications # of Antipsychotic meds at D/C: 1 Approp Antipsych med options 1 - Minimum of three failed multiple trials of monotherapy. 2 - Documented plan to taper to monotherapy due to previous use of multiple meds OR cross-taper in progress at D/C. 3 - Documentation of augmentation of Clozapine. 4 - Justification other than those listed in allowable values 1-3, document here : Discharge Discharge Date: May 09, 2017 Discharge Diagnosis: (1) Bipolar disorder, in partial remission, most recent episode manic Diagnosis: Principal ICD Code: F31.73 - Bipolar disorder, in partial remission, most recent episode manic Pt Condition on Discharge: Guarded (because AMA discharge) Discharge Disposition: Discharge Home Discharge Instructions Diet Instructions: As Tolerated, No Restrictions Activities you can perform: Weight Bearing as Nomi Scheduled Appointment: Kurt Don Appointment Date: May 13, 2017 Appointment Time: 7:30 am New Orders: AMMONIA - 2-3 Days DEPAKENE - 2-3 Days New Medications: Divalproex ER (Depakote ER) 250 Mg Alee 1250 MG PO DAILY for Mental Health for 10 Days, #50 TAB 2 Refills Levocarnitine Liq (Carnitor Liq) 1 Gm/10 Ml Soln 3 ML PO TID for Hyperammonemia for 10 Days, ML 2 Refills Olanzapine Odt (Zyprexa Zydis) 5 Mg Tab 10 MG PO DAILY@1200 for Mental Health for 10 Days, TAB 2 Refills Olanzapine Odt (Zyprexa Zydis) 10 Mg Tab 20 MG PO HS for Mental Health for 10 Days, TAB 2 Refills Discontinued Medications: Baclofen (Baclofen) 10 Mg Tab 10 MG PO BID, TAB 0 Refills Ciprofloxacin Hcl (Cipro) 500 Mg Tab 500 MG PO BID for 5 Days, TAB Clonazepam (Klonopin) 0.5 Mg Tab 0.5 MG PO Q8HR PRN for anxiety, #30 TAB Clonidine 0.1 mg (Catapres 0.1 mg) 0.1 Mg Tab 0.1 TAB PO BID, TAB Cyclobenzaprine (Flexeril) 10 Mg Tab 10 MG PO TID for Muscle Spasm, #90 TAB 0 Refills Escitalopram (Lexapro) 10 Mg Tab 10 MG PO DAILY, #30 TAB 0 Refills Hydrocodone/Acetaminophen (Hydrocodone-Acetamin 5-300 mg) 5 Mg-300 Mg Tablet 1 TAB PO Q6HR PRN for PAIN SCALE 1 TO 10 Ibuprofen (Ibuprofen) 800 Mg Tab 800 MG PO Q8H PRN for PAIN SCALE 1 TO 10, TAB 0 Refills Discharge Time <= 30 minutes Mental Status Examination Appearance: Other (Remains mildly disheveled) Consciousness: Alert Orientation: x4 Motor Activity: Other (no abnormal motor movements noted) Speech: Unremarkable Language: Adequate Fund of Knowledge: Adequate Attention and Concentration: Adequate Memory: Unremarkable Mood: Other (calm) Affect: Blunt Thought Process & Associations: Other (fairly linear) Thought Content: Appropriate Hallucination Type: None Delusion Type: None Suicidal Ideation: No Suicidal Plan: No Suicidal Intention: No Homicidal Ideation: No Homicidal Plan: No Homicidal Intention: No Insight: Poor Judgment: Poor Discharge/Advance Care Plan Health Problems: (1) Bipolar disorder, current episode manic severe with psychotic features Goals to promote your health * To prevent worsening of your condition and complications * To maintain your health at the optimal level Directions to meet your goals Take your medications as prescribed Follow your dietary instruction Follow activity as directed Keep your appointments as scheduled Take your immunizations and boosters as scheduled If your symptoms worsen call your PCP, if no PCP go to Urgent Care Center or Emergency Room For 31/12 questions related to your inpatient stay or results of tests pending at discharge, please contact Dr. Linwood Paris at Smoking is Dangerous to Your Health. Avoid second hand smoking Linwood Paris MD May 09, 2017 12:17
[2017-05-09] MEDS: OLANZapine ODT 5 MG TAB PO SCH (12:25)
== END 2017-05-09 13:30 | disposition left against medical advice (07) | DRG 885 ==
LOC: NEPE 11:10 → NEDA 17:05 → H270 21:12
PROVIDERS: ADMIT Psychiatry & Neurology Psychiatry; ATTEND Psychiatry & Neurology Psychiatry
DX: F31.2 Bipolar disorder, current episode manic severe with psychotic features (principal); E11.9 Type 2 diabetes mellitus without complications; I10 Essential (primary) hypertension; J45.909 Unspecified asthma, uncomplicated; M79.7 Fibromyalgia; F41.9 Anxiety disorder, unspecified; E87.6 Hypokalemia; Z86.73 Personal history of transient ischemic attack (TIA), and cerebral infarction without residual deficits
CPT/HCPCS: 70450; 80048; 80053; 80061; 80164; 80307; 81001; 82140; 83036; 83735; 84132; 84703; 85025; 93005; 96372; G0481; J1200; J1630; J2060; J3230; J3486; Q0163

== ENCOUNTER 2017-12-02 14:28 | Emergency (ER) | payer MEDICAID, MEDICARE ==
[~2017-12-02] VITALS: Ht 162.6 cm; Wt 100.0 kg
[~2017-12-02 14:28] MED LIST changes: -CIPR500T4 PO; -CLON.1 PO; -CLON.5 PO; +DIVA250ER PO; +LEVO10%S PO; +OLANZ10 PO; +OLANZ5 PO; -VENL75XR PO
[2017-12-02 14:37] VITALS: BP 136/76; PULSE 89; RESP 16; TEMP 98.4; O2SAT 99
--- NOTE | 2017-12-02 14:59 | PD ---
HPI Chief Complaint: Pain: Acute or Chronic Time Seen by Provider: 14:50 Travel History International Travel<30 days: No Contact w/Intl Traveler<30days: No Traveled to known affect area: No PFSH Past Medical History Hx Anticoagulant Therapy: No Asthma: Yes Anxiety: Yes Depression: Yes Cardiovascular Problems: Yes (A-FIB FROM LOW POTASSIUM) Chemotherapy: No Cerebrovascular Accident: Yes ("MICRO STROKES") Diabetes: Yes Diminished Hearing: No Endocrine: Yes (Pituitary Tumor) Fibromyalgia: Yes Hypertension: Yes Psychiatric: Yes Respiratory: Yes (PNA) Migraines: Yes Past Surgical History Cholecystectomy: Yes (2008) Hysterectomy: Yes Social History Alcohol Use: No Tobacco Use: No Allergies-Medications (Allergen,Severity, Reaction): Coded Allergies: latex (Unverified Allergy, Severe, 05/03/17) Uncoded Allergies: FIVE-FLUOROURACIL (Allergy, Unknown, 03/30/16) Reported Meds & Prescriptions Reported Meds & Active Scripts Active Zyprexa Zydis (Olanzapine) 10 Mg Tab 20 Mg PO HS 10 Days Zyprexa Zydis (Olanzapine) 5 Mg Tab 10 Mg PO DAILY@1200 10 Days Carnitor Liq (Levocarnitine) 1 Gm/10 Ml Soln 3 Ml PO TID 10 Days Depakote ER (Divalproex Sodium) 250 Mg Alee 1,250 Mg PO DAILY 10 Days Data Data Last Documented VS Vital Signs Date Time Temp Pulse Resp B/P (MAP) Pulse Ox O2 Delivery O2 Flow Rate FiO2 12/02/17 14:37 98.4 89 16 136/76 (96) 99 Mary Kay Figueroa Dec 02, 2017 14:59
[2017-12-02] MEDS ORDERED: BACL10TA PO (15:27)
[2017-12-02] MEDS ORDERED: PRED50 PO (15:27)
[2017-12-02] MEDS ORDERED: CLON0.1T PO (15:27)
--- NOTE | 2017-12-02 15:36 | PD ---
HPI Chief Complaint: Pain: Acute or Chronic Time Seen by Provider: 15:20 Travel History International Travel<30 days: No Contact w/Intl Traveler<30days: No Traveled to known affect area: No History of Present Illness HPI Before I walked in the room patient was resting comfortably on her cell phone. Walk in the room she complained of muscle spasm mid back to her left foot. He has a history of muscle spasms but not this bad as she says that she has had recurrent episodes over the past few days. Denies any recent trauma or injury states that she has a herniated/degenerative disc. Denies bowel or bladder changes positive nausea no vomiting, no fever no chills. The morphine implant in her spine states that Toradol and Norflex has helped her pain in the past. patient ran out of baclofen, will pick it up today. PFSH Past Medical History Hx Anticoagulant Therapy: No Asthma: Yes Anxiety: Yes Depression: Yes Cardiovascular Problems: Yes (A-FIB FROM LOW POTASSIUM) Chemotherapy: No Cerebrovascular Accident: Yes ("MICRO STROKES") Diabetes: Yes Patient Takes Glucophage: No Diminished Hearing: No Endocrine: Yes (Pituitary Tumor) Fibromyalgia: Yes Hypertension: Yes Psychiatric: Yes Respiratory: Yes (PNA) Migraines: Yes Tetanus Vaccination: > 5 Years Influenza Vaccination: Yes ?: Not Past Surgical History Cholecystectomy: Yes (2008) Hysterectomy: Yes Other Surgery: Yes (SPINAL STIMULATOR IMPLANTED) Social History Alcohol Use: No Tobacco Use: No Substance Use: No (UNK) Allergies-Medications (Allergen,Severity, Reaction): Coded Allergies: latex (Unverified Allergy, Severe, 12/02/17) Uncoded Allergies: FIVE-FLUOROURACIL (Allergy, Unknown, 03/30/16) Reported Meds & Prescriptions Reported Meds & Active Scripts Active Reported Prednisone 50 Mg Tab 50 Mg PO DAILY Clonidine (Clonidine HCl) 0.1 Mg Tab 0.1 Mg PO BID Baclofen 10 Mg Tab 10 Mg PO BID Review of Systems Except as stated in HPI: all other systems reviewed are Neg Physical Exam Narrative GENERAL: + crying on exam SKIN: Focused skin assessment warm/dry. HEAD: Atraumatic. Normocephalic. EYES: Pupils equal and round. No scleral icterus. No injection or drainage. ENT: No nasal bleeding or discharge. Mucous membranes pink and moist. NECK: Trachea midline. No JVD. CARDIOVASCULAR: Regular rate and rhythm. No murmur appreciated. RESPIRATORY: No accessory muscle use. Clear to auscultation. Breath sounds equal bilaterally. GASTROINTESTINAL: Abdomen soft, non-tender, nondistended. Hepatic and splenic margins not palpable. MUSCULOSKELETAL: No obvious deformities. No clubbing. No cyanosis. No edema. No focal C/T/L-spine tenderness. NEUROLOGICAL: Awake and alert. No obvious cranial nerve deficits. Motor grossly within normal limits. Normal speech. PSYCHIATRIC: Appropriate mood and affect; insight and judgment normal. Data Data Last Documented VS Vital Signs Date Time Temp Pulse Resp B/P (MAP) Pulse Ox O2 Delivery O2 Flow Rate FiO2 12/02/17 15:23 90 18 12/02/17 14:37 98.4 136/76 (96) 99 Orders Orders Basic Metabolic Panel (Bmp) (12/02/17 15:29) Magnesium (Mg) (12/02/17 15:29) Orphenadrine Inj (Norflex Inj) (12/02/17 15:45) Ketorolac Inj (Toradol Inj) (12/02/17 15:45) Labs Laboratory Tests Test 12/02/17 15:45 Blood Urea Nitrogen 13 MG/DL Creatinine 0.76 MG/DL Random Glucose 95 MG/DL Calcium Level 9.7 MG/DL Magnesium Level 2.4 MG/DL Sodium Level 138 MEQ/L Potassium Level 3.8 MEQ/L Chloride Level 103 MEQ/L Carbon Dioxide Level 26.2 MEQ/L Anion Gap 9 MEQ/L Estimat Glomerular Filtration Rate 80 ML/MIN MDM Medical Decision Making Medical Screen Exam Complete: Yes Emergency Medical Condition: Yes Interpretation(s) Normal potassium and magnesium Differential Diagnosis Sciatica, muscle spasm, electrolyte imbalance Narrative Course Patient presents to the emergency department complaining of back spasms. Denies trauma. Patient will get IV 15mgToradol and Norflex 60mg IM. Basic chemistry with magnesium will be checked. 1617: Patient ambulating in her room in the ER. States she feels better. Diagnosis Primary Impression: Back spasm Patient Instructions: General Instructions, Muscle Spasm (ED) Additional Instructions: 1. Meds as directed. 2. Followup with pain management appointment. 3. Take previously prescribed muscle relaxer. Disposition: DISCHARGE HOME Condition: Stable Lucy Jamison MD Dec 02, 2017 15:36
[2017-12-02] MEDS ORDERED: KETOROLAC TROMETHAMINE 30 MG/ML (IVP) VIAL IV PUSH ONE (15:45)
[2017-12-02] MEDS ORDERED: ORPHENADRINE INJ 60 MG/2 ML AMP IM ONE (15:45)
[2017-12-02 16:19] LABS: BICARBONATE 26.2 MEQ/L (21.0-32.0); CALCIUM 9.7 MG/DL (8.5-10.1); CREATININE 0.76 MG/DL (0.50-1.00); MAGNESIUM 2.4 MG/DL (1.5-2.5)
[2017-12-02] MEDS ORDERED: CYCL7.5T33 PO ×2 (16:35→16:37)
== END 2017-12-02 16:47 | disposition home or self-care (01) ==
LOC: NEPE 14:28
DX: M62.830 Muscle spasm of back (principal); I10 Essential (primary) hypertension; Z79.899 Other long term (current) drug therapy
CPT/HCPCS: 80048; 83735; 96372; 96374; 99284; J1885; J2360

== ENCOUNTER 2017-12-03 04:09 | Emergency (ER) | payer SELFPAY ==
[~2017-12-03] VITALS: Ht 165.1 cm; Wt 81.0 kg
[~2017-12-03 04:09] MED LIST changes: +BACL10TA PO; +CLON0.1T PO; +CYCL7.5T33 PO; -DIVA250ER PO; -LEVO10%S PO; -OLANZ10 PO; -OLANZ5 PO; +PRED50 PO
[2017-12-03 04:14] VITALS: BP 164/110; PULSE 106; RESP 22; TEMP 98.3; O2SAT 98
== END 2017-12-03 05:14 | disposition left against medical advice (07) ==
LOC: NED 04:09
DX: Z53.21 Procedure and treatment not carried out due to patient leaving prior to being seen by health care provider (principal)
CPT/HCPCS: 99281